=== PATIENT | female | born 1950 | race Caucasian/White ===

== ENCOUNTER 2019-05-08 14:22 | Emergency (ER) | payer MEDICARE ==
[~2019-05-08] VITALS: Ht 152.4 cm; Wt 56.7 kg
[2019-05-08 14:39] VITALS: BP 142/86
--- NOTE | 2019-05-08 14:39 | NUR ---
came in with 1cm laceration to L 5th digit, s/p slicing avocado. to er bed 11, hooked to monitor , warm blanket provided. awaiting md gonzalez
[2019-05-08] MEDS ORDERED: TDAP [DIPH/PERTUSSIS/TET] 0.5 ML VIAL IM ONE ×2 (15:48→16:00)
--- NOTE | 2019-05-08 15:55 | NUR ---
Patient discharged to in stable condition to watch out for adverse rxn to TDAP. Written and verbal after care instructions given. Patient verbalizes understanding of instruction.
== END 2019-05-08 15:57 | disposition home or self-care (01) ==
LOC: ER 14:29
DX: S61.217A Laceration without foreign body of left little finger without damage to nail, initial encounter (principal); Z91.040 Latex allergy status; W26.0XXA Contact with knife, initial encounter; Y93.89 Activity, other specified; Y92.89 Other specified places as the place of occurrence of the external cause; Y99.8 Other external cause status
CPT/HCPCS: 90715

== ENCOUNTER 2019-05-10 07:07 | Emergency (ER) | payer MEDICARE ==
[~2019-05-10] VITALS: Ht 154.9 cm; Wt 43.1 kg
[2019-05-10 07:20] VITALS: BP 135/91
--- NOTE | 2019-05-10 07:32 | NUR ---
Patient discharged to home in stable condition. Written and verbal after care instructions given. Patient verbalizes understanding of instruction.
== END 2019-05-10 07:33 | disposition home or self-care (01) ==
LOC: ER 07:08
DX: S61.217D Laceration without foreign body of left little finger without damage to nail, subsequent encounter (principal); Z91.040 Latex allergy status; W26.0XXD Contact with knife, subsequent encounter

== ENCOUNTER 2019-05-14 07:19 | Emergency (ER) | payer MEDICARE, BC ==
[~2019-05-14] VITALS: Ht 154.9 cm; Wt 43.1 kg
[2019-05-14 07:26] VITALS: BP 123/71
--- NOTE | 2019-05-14 07:53 | NUR ---
Patient discharged to home in stable condition. Written and verbal after care instructions given. Patient verbalizes understanding of instruction.
== END 2019-05-14 07:53 | disposition home or self-care (01) ==
LOC: ER 07:19
DX: S61.217D Laceration without foreign body of left little finger without damage to nail, subsequent encounter (principal); X58.XXXD Exposure to other specified factors, subsequent encounter